=== PATIENT | male | born 1945 | race Caucasian/White ===

== ENCOUNTER 2020-05-07 15:24 | Emergency (ER) | payer MEDICARE, OTHER ==
[~2020-05-07] VITALS: Ht 177.8 cm; Wt 75.0 kg
--- NOTE | 2020-05-07 15:41 | PHYS DOC ---
Adult General Chief Complaint Chief Complaint: FLANK PAIN HPI HPI Patient is a pleasant 74-year-old male presenting for left lower quadrant and left flank plain. This is an acute on chronic problem that has been present over past 1 month. Patient reports distant history of being diagnosed with kidney stones on the left side but unsure if he is passed them. Has not had any fever or other systemic symptoms. Reports left lower quadrant sharp pain that shoots into the left flank and also down into left pubic area. No gross hematuria. No UTI-like symptoms. No changes in bowel function Review of Systems Review of Systems Fourteen body systems of review of systems have been reviewed. See HPI for pertinent positives and negative responses, other dahl all other systems are ne gative, non-pertinent or non-contributory Physical Exam Physical Exam Constitutional: Well developed, well nourished, no acute distress, non-toxic appearance. HENT: Normocephalic, atraumatic, bilateral external ears normal, oropharynx moist, no oral exudates, nose normal. Eyes: PERRLA, EOMI, conjunctiva normal, no discharge. Neck: Normal range of motion, no tenderness, supple, no stridor. Cardiovascular: Heart rate regular, sinus rhythm, no murmurs rubs or gallops Lungs & Thorax: Bilateral breath sounds clear to auscultation Abdomen: Bowel sounds normal, soft, mild tenderness to left lower quadrant with guarding present, no rebound, no masses, no pulsatile masses. Nonsurgical abdomen, no peritoneal signs Skin: Warm, dry, no erythema, no rash. Back: No tenderness, left CVA tenderness. Extremities: No tenderness, no cyanosis, no clubbing, ROM intact, no edema. Neurologic: Alert and oriented X 3, grossly normal motor & sensory function, no focal deficits noted. Psychologic: Affect normal, judgement normal, mood normal. Current Patient Data Vital Signs Vital Signs Date Time Temp Pulse Resp B/P (MAP) Pulse Ox O2 Delivery O2 Flow Rate FiO2 05/07/20 17:20 68 18 156/88 (110) 100 Room Air 05/07/20 15:49 97.8 Lab Results Laboratory Tests Test 05/07/20 15:41 05/07/20 16:23 Urine Collection Type Unknown Urine Color Yellow Urine Clarity Hazy Urine pH 5.5 Urine Specific [place] 1.025 Urine Protein Trace (NEG-TRACE) Urine Glucose (UA) Neg mg/dL (NEG) Urine Ketones (Stick) Neg mg/dL (NEG) Urine Blood Large (NEG) Urine Nitrite Neg (NEG) Urine Bilirubin Neg (NEG) Urine Urobilinogen Dipstick 0.2 mg/dL (0.2 mg/dL) Urine Leukocyte Esterase Neg (NEG) Urine RBC >40 /HPF (0-2) Urine WBC Occ /HPF (0-4) Urine Squamous Epithelial Cells None /LPF Urine Bacteria 0 /HPF (0-FEW) Urine Mucus Slight /LPF Urine Yeast Present /HPF White Blood Count 8.9 x10^3/uL (4.0-11.0) Red Blood Count 4.26 x10^6/uL (4.30-5.70) Hemoglobin 14.0 g/dL (13.0-17.5) Hematocrit 41.5 % (39.0-53.0) Mean Corpuscular Volume 98 fL (79-100) Mean Corpuscular Hemoglobin 33 pg (25-35) Mean Corpuscular Hemoglobin Concent 34 g/dL (31-37) Red Cell Distribution Width 12.4 % (11.5-14.5) Platelet Count 141 x10^3/uL (140-400) Neutrophils (%) (Auto) 89 % (31-73) Lymphocytes (%) (Auto) 7 % (24-48) Monocytes (%) (Auto) 4 % (0-9) Eosinophils (%) (Auto) 0 % (0-3) Basophils (%) (Auto) 0 % (0-3) Neutrophils # (Auto) 7.9 x10^3uL (1.8-7.7) Lymphocytes # (Auto) 0.6 x10^3/uL (1.0-4.8) Monocytes # (Auto) 0.4 x10^3/uL (0.0-1.1) Eosinophils # (Auto) 0.0 x10^3/uL (0.0-0.7) Basophils # (Auto) 0.0 x10^3/uL (0.0-0.2) Segmented Neutrophils % 88 % (35-66) Band Neutrophils % 1 % (0-9) Lymphocytes % 4 % (24-48) Monocytes % 7 % (0-10) Platelet Estimate Adequate (ADEQUATE) Sodium Level 137 mmol/L (136-145) Potassium Level 4.1 mmol/L (3.5-5.1) Chloride Level 103 mmol/L (98-107) Carbon Dioxide Level 28 mmol/L (21-32) Anion Gap 6 (6-14) Blood Urea Nitrogen 18 mg/dL (8-26) Creatinine 1.7 mg/dL (0.7-1.3) Estimated GFR (Cockcroft-Gault) 39.8 Glucose Level 132 mg/dL (70-99) Calcium Level 8.3 mg/dL (8.5-10.1) EKG EKG [] Radiology/Procedures Radiology/Procedures HISTORY: Left lower quadrant pain. TECHNIQUE: Computed tomography of the abdomen and pelvis was performed without intravenous contrast. One or more of the following individualized dose reduction techniques were utilized for this examination: 1. Automated exposure control. 2. Adjustment of the mA and/or kV according to patient size. 3. Use of iterative reconstruction technique. COMPARISON: None. FINDINGS: Lung windows through the visualized portions of the bases reveal mild atelectasis. Bone windows reveal no suspicious lesions. The appendix is not inflamed. There is no small bowel obstruction. There is mild bladder wall thickening. The prostate is moderately enlarged at 4.2 cm. There are no pathologically enlarged lymph nodes. A gallstone is noted. There is no pericholecystic inflammation. The liver, pancreas, adrenal glands and spleen are unremarkable. A calculus 3 cm proximal to the left ureterovesical junction measures 5 mm. There is mild left pelviectasis and perinephric stranding. There are no additional renal or ureteral calculi. There are no suspicious renal lesions without contrast. IMPRESSION: 1. 5 mm left distal ureteral calculus with mild proximal obstructive findings. 2. Bladder wall thickening may reflect chronic outlet obstruction or inflammation. Correlate with urinalysis. 3. Cholelithiasis. Electronically signed by: Ion Penaloza MD (05/07/2020 4:57 PM) [id number] Heart Score Risk Factors: Risk Factors: DM, Current or recent (<one month) smoker, HTN, HLP, family history of CAD, obesity. Risk Scores: Risk Factors: DM, Current or recent (<one month) smoker, HTN, HLP, family history of CAD, obesity. Course & Med Decision Making Course & Med Decision Making Pertinent Labs and Imaging studies reviewed. (See chart for details) Discussed most likely diagnosis of left-sided kidney stone. Discussed approximately 60% likelihood of stone passage without invasive intervention. Discussed role of pain medications for severe pain in addition to Flomax, no indication for antibiotics at present Patient has good access to primary care physician. He feels safe for discharge home given that he is ambulatory and tolerating p.o. intake, afebrile and nontoxic. I advised him to discuss need to refer to urology for outpatient follow-up. In the meantime I advised him to take prescribed medications as written and strain his urine to monitor if stone passes or not Strict return precautions were discussed at length with good understanding by patient, all questions and concerns addressed prior to ER departure in stable condition Dragon Disclaimer Dragon Disclaimer This electronic medical record was generated, in whole or in part, using a voice recognition dictation system. Departure Departure: Impression: Primary Impression: Kidney stone on left side Disposition: HOME SELF CARE/HOMELESS Condition: STABLE Referrals: ANA TINOCO MD (PCP) Patient Instructions: Kidney Stones Additional Instructions: As discussed prior to ER departure, please keep your follow-up appointment with your outpatient primary care physician this upcoming Sunday. As discussed, I would discuss today's visit and potential need for outpatient urology follow-up with your primary care physician. Please take the time as to medications you were given at discharge as prescribed to completion. Flomax will help open your tubes to facilitate expulsion of kidney stone. The other is the narcotic pain medication that should be used for severe pain only As discussed, if any concerning signs or symptoms of infection present prior to outpatient follow-up such as fever, please do not hesitate to come back for repeat examination as there might be indication at that time for antibiotics It was a pleasure to take care of you and I wish you a speedy recovery! Scripts Hydrocodone Bit/Acetaminophen (NORCO 5-325 TABLET) 1 Each Tablet 1 TAB PO PRN Q6HRS PRN for PAIN, #12 TAB 0 Refills Prov: DURAN GOLDEN DO 05/07/20 Tamsulosin Hcl (FLOMAX) 0.4 Mg Cap.er.24h 1 CAP PO DAILY for kidney stone, #30 CAP 11 Refills Prov: DURAN GOLDEN DO 05/07/20 DURAN GOLDEN DO May 07, 2020 15:41
[2020-05-07 16:28] LABS: BILIRUBIN,URINE NEG (NEG); CLARITY,URINE HAZY; COLOR,URINE YELLOW; GLUCOSE,URINE NEG (NEG)
[2020-05-07 16:29] LABS: BACTERIA,URINE 0 /HPF (0-FEW); NITRITE,URINE NEG (NEG); RBC,URINE >40 /HPF (0-2); UROBILINOGEN,URINE 0.2 mg/dL (0.2 mg/dL); WBC,URINE OCC /HPF (0-4); YEAST,URINE PRESENT /HPF
[2020-05-07] MEDS ORDERED: MORPHINE SULFATE 4 MG/ML DISP.SYRIN. IV ONE (16:30)
[2020-05-07] MEDS ORDERED: MORPHINE SULFATE 4 MG/ML DISP.SYRIN. ONE (16:32)
[2020-05-07 16:53] LABS: BASO % 0 % (0-3); EOS % 0 % (0-3); HEMATOCRIT 41.5 % (39.0-53.0); LYMPH # 0.6 x10^3/uL (1.0-4.8); LYMPH % 7 % (24-48); MEAN CORPUSCULAR HEMOGLOBIN 33 pg (25-35); MEAN CORPUSCULAR HGB CONC 34 g/dL (31-37); MEAN CORPUSCULAR VOLUME 98 fL (79-100); MONO # 0.4 x10^3/uL (0.0-1.1); MONO % 4 % (0-9); NEUT # 7.9 x10^3uL (1.8-7.7); NEUT % 89 % (31-73); PLATELET COUNT 141 x10^3/uL (140-400); RED BLOOD COUNT 4.26 x10^6/uL (4.30-5.70); RED CELL DISTRIBUTION WIDTH 12.4 % (11.5-14.5); WHITE BLOOD COUNT 8.9 x10^3/uL (4.0-11.0)
--- NOTE | 2020-05-07 17:00 | RAD ---
EXAM: CT ABDOMEN/PELVIS WITHOUT CONTRAST. HISTORY: Left lower quadrant pain. TECHNIQUE: Computed tomography of the abdomen and pelvis was performed without intravenous contrast. One or more of the following individualized dose reduction techniques were utilized for this examination: 1. Automated exposure control. 2. Adjustment of the mA and/or kV according to patient size. 3. Use of iterative reconstruction technique. COMPARISON: None. FINDINGS: Lung windows through the visualized portions of the bases reveal mild atelectasis. Bone windows reveal no suspicious lesions. The appendix is not inflamed. There is no small bowel obstruction. There is mild bladder wall thickening. The prostate is moderately enlarged at 4.2 cm. There are no pathologically enlarged lymph nodes. A gallstone is noted. There is no pericholecystic inflammation. The liver, pancreas, adrenal glands and spleen are unremarkable. A calculus 3 cm proximal to the left ureterovesical junction measures 5 mm. There is mild left pelviectasis and perinephric stranding. There are no additional renal or ureteral calculi. There are no suspicious renal lesions without contrast. IMPRESSION: 1. 5 mm left distal ureteral calculus with mild proximal obstructive findings. 2. Bladder wall thickening may reflect chronic outlet obstruction or inflammation. Correlate with urinalysis. 3. Cholelithiasis. Electronically signed by: Ion Penaloza MD (05/07/2020 4:57 PM) [email or web address]
[2020-05-07 17:06] LABS: CALCIUM 8.3 mg/dL (8.5-10.1); CREATININE 1.7 mg/dL (0.7-1.3); GFR 39.8; POTASSIUM 4.1 mmol/L (3.5-5.1)
[2020-05-07] MEDS ORDERED: HYDR-3165 PO (17:13)
[2020-05-07] MEDS ORDERED: TAMS0.4C97 PO (17:13)
[2020-05-07 17:20] VITALS: BP 156/88
[2020-05-07] MEDS ORDERED: TAMSULOSIN 0.4 MG CAP.ER.24H. PO ONE ×2 (17:25→17:30)
[2020-05-07 18:05] LABS: % BANDS 1 % (0-9); % LYMPHS 4 % (24-48); % MONOS 7 % (0-10); % SEGS 88 % (35-66); PLT ESTIMATE ADEQUATE (ADEQUATE)
== END 2020-05-07 17:28 | disposition home or self-care (01) ==
LOC: ER 15:24
DX: N20.0 Calculus of kidney (principal)
CPT/HCPCS: 36415; 74176; 80048; 81001; 85007; 85025; 96374; 99284; J2270